=== PATIENT | male | born 1950 | race Caucasian/White ===

== ENCOUNTER → 2017-07-24 | Outpatient (CLI) | payer OTHER ==
--- NOTE | 2017-07-24 11:58 | RAD ---
CHEST PA LATERAL Clinical indications: CHRONIC COUGH, CONGESTION, SHORT OF BREATH COMPARISON: None available Findings: Old granulomatous disease is evident. There is nodular density of the lateral aspect of the left lower lung zone which may represent a nodular scar or granuloma. Recommend a chest CT with IV contrast for further evaluation if there is no previous chest x-ray available for comparison.. No acute lung infiltrate or pleural effusion or pulmonary edema or pneumothorax is seen. Mild cardiomegaly is evident. The pulmonary vasculature, mediastinum and both alexis are unremarkable. The osseous structures appear intact. Impression: Nodular density of the lateral aspect of the left lower lung zone which may represent a nodular scar or granuloma. However, recommend a chest CT with IV contrast for further evaluation if there is no previous chest x-ray available for comparison. Mild cardiomegaly. Electronically signed by: Grant Aaron MD (07/24/2017 11:55 AM) [id number]
== END | disposition home or self-care (01) ==
LOC: DXRAD 08:24
PROVIDERS: ATTEND Family Medicine
DX: I48.91 Unspecified atrial fibrillation (principal); I50.9 Heart failure, unspecified; R91.1 Solitary pulmonary nodule; I51.7 Cardiomegaly
CPT/HCPCS: 71046

== ENCOUNTER → 2019-11-10 | Outpatient (CLI) | payer MEDICARE, MEDICAID | LOC: LAB 08:52 | PROVIDERS: ATTEND Internal Medicine Clinical Cardiac Electrophysiology | DX: Z01.812 Encounter for preprocedural laboratory examination (principal); I47.2 Ventricular tachycardia; Z20.828 Contact with and (suspected) exposure to other viral communicable diseases | CPT/HCPCS: U0003-CS ==

== ENCOUNTER 2020-09-14 12:46 | Emergency (ER) | payer MEDICARE, MEDICAID ==
[~2020-09-14] VITALS: Ht 172.7 cm; Wt 114.2 kg
[2020-09-14] MEDS: IV NORMAL SALINE 1,000ML 1,000 ML IV ONE ×4 (13:05→15:30)
--- NOTE | 2020-09-14 13:05 | PHYS DOC ---
Past History Past Medical History: CVA, Diabetes, DVT Past Surgical History: Other Additional Past Surgical Histo: GI Smoking: Quit Greater Than 1 Year Alcohol Use: None Drug Use: None Adult General Chief Complaint Chief Complaint: MULTIPLE COMPLAINTS HPI HPI Patient is a 70-year-old male presenting via EMS from local primary care clinic. He is a poor historian. States he was seen and evaluated at their facility approximately 1 week ago and states he had blood work performed but cannot remember the results. Reports he went back today for refill of medications, states he is insulin-dependent type 2 diabetic with unknown last hemoglobin A1c, states he has not been taking any of his home medication for diabetes though? Per EMS report, it was reported that patient presented to clinic and appeared diaphoretic, hypotensive, tachycardic and had an irregular heart beat and so EMS was called to transfer him here for evaluation. In route, patient's bpoek-qa-arel glucose read high. Patient does admit to having history of CVA and is currently on Xarelto for blood clot, he is unsure how long he has been on this and or where blood clot was but states he has seen contact worker lithography in the past for it. He is unsure who his contact worker lithography is. At present, patient complains of chest pressure, diaphoresis, abdominal distention and decreased frequency of urination which is new for him. Denies any recent fever, blurred vision, ripping or tearing sensation in chest, changes in motor neuro or sensory function. Review of Systems Review of Systems Fourteen body systems of review of systems have been reviewed. See HPI for pertinent positives and negative responses, other mora all other systems are negative, non-pertinent or non-contributory Current Medications Current Medications Current Medications Medications (Trade) Dose Ordered Sig/Evie Start Time Stop Time Status Last Admin Dose Admin Aspirin (Aspirin Chewable) 162 mg 1X ONCE 09/14/20 13:15 09/14/20 13:16 DC 09/14/20 13:19 162 MG Ceftriaxone Sodium 2 gm/ Sodium Chloride 100 ml @ 200 mls/hr 1X ONCE 09/14/20 15:15 09/14/20 15:44 DC 09/14/20 15:54 200 MLS/HR Ceftriaxone Sodium (Rocephin) 2 gm STK-MED ONCE 09/14/20 15:50 09/14/20 15:51 DC Insulin Human Regular (HumuLIN R VIAL) 10 unit 1X ONCE 09/14/20 14:15 09/14/20 14:39 DC 09/14/20 14:58 10 UNIT Sodium Chloride 100 ml @ As Directed STK-MED ONCE 09/14/20 15:51 09/14/20 15:51 DC Allergies Allergies Allergies Coded Allergies Type Severity Reaction Last Updated Verified No Known Drug Allergies 09/14/20 No Physical Exam Physical Exam Constitutional: Well developed, well nourished, no acute distress, non-toxic appearance. HENT: Normocephalic, atraumatic, bilateral external ears normal, oropharynx moist, no oral exudates, nose normal. Eyes: PERRLA, EOMI, conjunctiva normal, no discharge. Neck: Normal range of motion, no tenderness, supple, no stridor. Cardiovascular: Heart rate regular, sinus rhythm, no murmurs rubs or gallops Lungs & Thorax: Bilateral breath sounds clear to auscultation Abdomen: Bowel sounds normal, soft, no tenderness, no masses, no pulsatile masses. Nonsurgical abdomen, no peritoneal signs Skin: Warm, dry, no erythema, no rash. Back: No tenderness, no CVA tenderness. Extremities: No tenderness, no cyanosis, no clubbing, ROM intact, no edema. Neurologic: Alert and oriented X 3, grossly normal motor & sensory function, no focal deficits noted. Psychologic: Affect normal, judgement normal, mood normal. Current Patient Data Vital Signs Vital Signs Date Time Temp Pulse Resp B/P (MAP) Pulse Ox O2 Delivery O2 Flow Rate FiO2 09/14/20 12:52 98.5 77 20 80/41 97 Room Air Vital Signs Date Time Temp Pulse Resp B/P (MAP) Pulse Ox O2 Delivery O2 Flow Rate FiO2 09/14/20 12:52 98.5 77 20 80/41 97 Room Air Lab Results Laboratory Tests Test 09/14/20 13:00 09/14/20 13:20 09/14/20 14:35 09/14/20 14:49 White Blood Count 18.1 x10^3/uL Red Blood Count 4.11 x10^6/uL Hemoglobin 12.9 g/dL Hematocrit 39.4 % Mean Corpuscular Volume 96 fL Mean Corpuscular Hemoglobin 31 pg Mean Corpuscular Hemoglobin Concent 33 g/dL Red Cell Distribution Width 13.7 % Platelet Count 189 x10^3/uL Neutrophils (%) (Auto) 90 % Lymphocytes (%) (Auto) 2 % Monocytes (%) (Auto) 8 % Eosinophils (%) (Auto) 0 % Basophils (%) (Auto) 0 % Neutrophils # (Auto) 16.2 x10^3uL Lymphocytes # (Auto) 0.4 x10^3/uL Monocytes # (Auto) 1.4 x10^3/uL Eosinophils # (Auto) 0.0 x10^3/uL Basophils # (Auto) 0.0 x10^3/uL Segmented Neutrophils % 63 % Band Neutrophils % 28 % Lymphocytes % 2 % Monocytes % 3 % Eosinophils % 1 % Metamyelocytes % 2 % Myelocytes % 1 % Platelet Estimate Adequate Sodium Level 128 mmol/L Potassium Level 4.8 mmol/L Chloride Level 89 mmol/L Carbon Dioxide Level 21 mmol/L Anion Gap 18 Blood Urea Nitrogen 54 mg/dL Creatinine 3.6 mg/dL Estimated GFR (Cockcroft-Gault) 16.9 BUN/Creatinine Ratio 15 Glucose Level 635 mg/dL Lactic Acid Level 8.1 mmol/L Calcium Level 8.5 mg/dL Total Bilirubin 2.8 mg/dL Aspartate Amino Transf (AST/SGOT) 33 U/L Alanine Aminotransferase (ALT/SGPT) 23 U/L Alkaline Phosphatase 178 U/L Troponin I Quantitative 0.468 ng/mL WI-Eoj-B-Type Natriuretic Peptide 7871 pg/mL Total Protein 7.2 g/dL Albumin 2.9 g/dL Albumin/Globulin Ratio 0.7 Acetone Level Neg Bedside Venous pH 7.34 Bedside Venous pCO2 38 mmHg Bedside Venous pO2 36 mmHg Venous Blood HCO3 20 mmol/L POC Venous O2 Saturation (Regulo) 66 % Bedside FiO2 21 Ethyl Alcohol Level < 10 mg/dL Prothrombin Time 17.5 SEC Prothromb Time International Ratio 1.7 Activated Partial Thromboplast Time 39 SEC Urine Collection Type Unknown Urine Color Yellow Urine Clarity Cloudy Urine pH 6.0 Urine Specific Jewell 1.015 Urine Protein >100 mg/dl Urine Glucose (UA) >=1000 mg/dL Urine Ketones (Stick) Neg mg/dL Urine Blood Large Urine Nitrite Neg Urine Bilirubin Neg Urine Urobilinogen Dipstick 0.2 mg/dL Urine Leukocyte Esterase Small Urine RBC 0 /HPF Urine WBC Tntc /HPF Urine Squamous Epithelial Cells Few /LPF Urine Bacteria Mod /HPF Urine Mucus Slight /LPF Urine Opiates Screen Neg Urine Methadone Screen Neg Urine Barbiturates Neg Urine Phencyclidine Screen Neg Urine Amphetamine/Methamphetamine Neg Urine Benzodiazepines Screen Neg Urine Cocaine Screen Neg Urine Cannabinoids Screen Neg Urine Ethyl Alcohol Neg Test 09/14/20 16:40 09/14/20 18:18 Lactic Acid Level 3.7 mmol/L Glucose (Fingerstick) 389 mg/dL Current Medications Medications (Trade) Dose Ordered Sig/Evie Route PRN Reason Start Time Stop Time Status Last Admin Dose Admin Sodium Chloride 1,000 ml @ 1,000 mls/hr 1X ONCE IV 09/14/20 13:15 09/14/20 14:14 DC 09/14/20 13:05 1,000 MLS/HR Aspirin (Aspirin Chewable) 162 mg 1X ONCE PO 09/14/20 13:15 09/14/20 13:16 DC 09/14/20 13:19 162 MG Sodium Chloride 1,000 ml @ 1,000 mls/hr 1X ONCE IV 09/14/20 13:45 09/14/20 14:44 DC 09/14/20 13:34 1,000 MLS/HR Sodium Chloride 1,000 ml @ 1,000 mls/hr 1X ONCE IV 09/14/20 14:00 09/14/20 14:59 DC 09/14/20 14:00 1,000 MLS/HR Insulin Human Regular (HumuLIN R VIAL) 10 unit 1X ONCE IV 09/14/20 14:15 09/14/20 14:39 DC 09/14/20 14:58 10 UNIT Ceftriaxone Sodium 2 gm/ Sodium Chloride 100 ml @ 200 mls/hr 1X ONCE IV 09/14/20 15:15 09/14/20 15:44 DC 09/14/20 15:54 200 MLS/HR Sodium Chloride 1,000 ml @ 1,000 mls/hr 1X ONCE IV 09/14/20 15:30 09/14/20 16:29 DC 09/14/20 15:30 1,000 MLS/HR Ceftriaxone Sodium (Rocephin) 2 gm STK-MED ONCE IV 09/14/20 15:50 09/14/20 15:51 DC Sodium Chloride 100 ml @ As Directed STK-MED ONCE .ROUTE 09/14/20 15:51 09/14/20 15:51 DC EKG EKG EKG ordered and interpreted by myself at 1300 hrs. shows sinus rhythm at 78 bpm, QTC 501, no axis deviation, T wave inversion noted in lead V2 through V6, there is concern for ST wave inversion in leads V2 through V5, no STEMI EKG ordered and interpreted by myself at 1332 hrs. sinus rhythm at 75 bpm, prolonged QTC at 510 otherwise unremarkable intervals, no axis deviation, persistent T wave inversions noted in lead V2 through V6, there is persistent ST wave depression in leads V2, V3, V4, V5, no STEMI Radiology/Procedures Radiology/Procedures EXAM: Chest, single view; abdomen, single view. HISTORY: Fatigue. Hypertension. COMPARISON: 07/24/2017 FINDINGS: CHEST: A frontal view of the chest is obtained. There is no infiltrate, pleural effusion or pneumothorax. There is a stable prominent cardiac silhouette. There are chronic appearing interstitial changes. ABDOMEN: Frontal views of the abdomen are obtained. There is gas and stool within the colon and rectum. There are nonspecific air-filled dose of bowel within the midabdomen. No convincing transition point is seen to suggest obstruction. IMPRESSION: 1. No acute pulmonary finding. 2. Prominent air-filled bowel within the abdomen. No convincing transition point is seen to suggest obstruction. Electronically signed by: Kirstie Huddleston MD (09/14/2020 1:31 PM) [id number] ///////////////////////// CT abdomen and pelvis without contrast. HISTORY: Abdominal pain and distention CT abdomen pelvis was done without contrast. There is mild atelectasis or scarring in the lingula. Lung bases are otherwise clear. There is hypertrophic change in the spine. There is no acute lumbar fracture. A liver lesion is not identified. Spleen is unremarkable. Adrenal glands are normal. There is a cyst at the upper pole of the left kidney no further follow-up is warranted. There is a 2 mm calculus in the mid left kidney there is a focal complicated or hemorrhagic cyst in the anterior lower left kidney follow-up with ultrasound could be of benefit. There is no mass or hydronephrosis or calculus in the right kidney. There is atherosclerotic change in the aorta without an aneurysm. There is not evidence of a diverticulitis. There is not evidence of appendicitis. There is slight indistinctness or edema in the retroperitoneum adjacent to the ureters. There is no ureteral calculus or hydronephrosis. There is no hydronephrosis or hydroureter. Mild retroperitoneal fibrosis is possible. There is trabeculation of the bladder. Prostate is generous in size. There is no old study for comparison. IMPRESSION: 1. Left intrarenal calculus. 2. Hemorrhagic or complicated cyst lower left kidney follow-up or ultrasound could be of benefit. 3. Indistinctness in the retroperitoneal fat etiology undetermined. 4. No renal or ureteral calculus or hydronephrosis noted. 5. Thickening of the bladder wall with trabeculation. PQRS Compliance Statement: One or more of the following individualized dose reduction techniques were utilized for this examination: 1. Automated exposure control 2. Adjustment of the mA and/or kV according to patient size 3. Use of iterative reconstruction technique Electronically signed by: Bhavesh Culp MD (09/14/2020 3:27 PM) [facility] Heart Score C/O Chest Pain: Yes HEART Score for Chest Pain: HEART Score for Chest Pain Response (Comments) Value History Moderately Suspicious [address] Depression 2 Age > 65 2 Risk Factors >3 Risk Factors or Hx CAD 2 Troponin >3 x Normal Limit 2 Total 9 Risk Factors: Risk Factors: DM, Current or recent (<one month) smoker, HTN, HLP, family history of CAD, obesity. Risk Scores: Risk Factors: DM, Current or recent (<one month) smoker, HTN, HLP, family history of CAD, obesity. Course & Med Decision Making Course & Med Decision Making Airway patent, breathing unlabored, IV access and vitals obtained concerning for hypotension HPI limited due to fact that patient is extremely poor historian. Physical examination grossly unremarkable for emergent or surgical issues. [id number] glucose read is high and diagnostic work-up ensued Immediate aggressive IV fluid rehydration started with improvement in patient's blood pressure. There was concern for decreased urinary frequency and suprapubic pain so decision was made to administer 2 g IV Rocephin for UTI as likely source of sepsis Patient initially reported chest pain while at primary care clinic approximately 1 hour prior to arrival, no reoccurrence of this, no medication was given, EKGs nonconcerning for STEMI but there is an elevated troponin. Unsure cardiac etiology NSTEMI versus type II NSTEMI Patient's glucose and lactic acid on recheck thoroughly improved with IV fluid rehydration and IV insulin. Nonetheless, patient still not fit for departure home I contacted cardiology services at [facility] and reviewed case, they agreed need for continued medical management of underlying problem which is sepsis and will continue to monitor patient's EKGs and serial troponins with no need for cardiac catheterization activation I contacted hospitalist service at [facility] and discussed need for hospital transfer, they accepted patient under their care into ICU setting I updated patient on proposed plan of care that included hospital transfer and he was amenable. All questions and concerns addressed prior to ER transfer in improved but still guarded Critical Care Time This patient required critical care. Due to the fact that the patient required a significant amount of one on one physician - patient contact time, ordering and review of studies, arranging urgent treatment with development of a management plan, evaluation of patients response to treatment with frequent reassessments, and discussions with other providers this patient required 45 minutes of critical care time. Critical care time was indicated due to the inherent instability and/or potential for instability in this patient. The critical care time that is allocated to this patient is above and beyond any time spent on any other billable procedures performed on this patient. Dragon Disclaimer Dragon Disclaimer This electronic medical record was generated, in whole or in part, using a voice recognition dictation system. Departure Departure: Impression: Primary Impression: Sepsis secondary to UTI Additional Impressions: Prolonged QT interval Elevated troponin Uncontrolled type 2 diabetes mellitus with hyperglycemia Disposition: 02 [facility] Admitting Physician: Other (DR YANES) Condition: GUARDED Referrals: TOSHIA SHARMA (PCP) Problem Qualifiers YAYA PADILLA DO Sep 14, 2020 13:05
[2020-09-14 13:15] LABS: BASO % 0 % (0-3); EOS % 0 % (0-3); HEMATOCRIT 39.4 % (39.0-53.0); HEMOGLOBIN 12.9 g/dL (13.0-17.5); LYMPH # 0.4 x10^3/uL (1.0-4.8); LYMPH % 2 % (24-48); MEAN CORPUSCULAR HEMOGLOBIN 31 pg (25-35); MEAN CORPUSCULAR HGB CONC 33 g/dL (31-37); MEAN CORPUSCULAR VOLUME 96 fL (79-100); MONO # 1.4 x10^3/uL (0.0-1.1); MONO % 8 % (0-9); NEUT # 16.2 x10^3uL (1.8-7.7); NEUT % 90 % (31-73); PLATELET COUNT 189 x10^3/uL (140-400); RED BLOOD COUNT 4.11 x10^6/uL (4.30-5.70); RED CELL DISTRIBUTION WIDTH 13.7 % (11.5-14.5); WHITE BLOOD COUNT 18.1 x10^3/uL (4.0-11.0)
[2020-09-14] MEDS: ASPIRIN CHEWABLE 81 MG TABLET. PO ONE (13:19)
--- NOTE | 2020-09-14 13:33 | RAD ---
EXAM: Chest, single view; abdomen, single view. HISTORY: Fatigue. Hypertension. COMPARISON: 07/24/2017 FINDINGS: CHEST: A frontal view of the chest is obtained. There is no infiltrate, pleural effusion or pneumotho rax. There is a stable prominent cardiac silhouette. There are chronic appearing interstitial changes . ABDOMEN: Frontal views of the abdomen are obtained. There is gas and stool within the colon and rectu m. There are nonspecific air-filled dose of bowel within the midabdomen. No convincing transition poi nt is seen to suggest obstruction. IMPRESSION: 1. No acute pulmonary finding. 2. Prominent air-filled bowel within the abdomen. No convincing transition point is seen to suggest o bstruction. Electronically signed by: Kirstie Huddleston MD (09/14/2020 1:31 PM) [id number]
[2020-09-14 13:44] LABS: ALBUMIN 2.9 g/dL (3.4-5.0); ALBUMIN/GLOBULIN RATIO 0.7 (1.0-1.7); CALCIUM 8.5 mg/dL (8.5-10.1); CREATININE 3.6 mg/dL (0.7-1.3); GFR 16.9; POTASSIUM 4.8 mmol/L (3.5-5.1); TOTAL BILIRUBIN 2.8 mg/dL (0.2-1.0); TOTAL PROTEIN 7.2 g/dL (6.4-8.2)
[2020-09-14 14:04] LABS: % BANDS 28 % (0-9); % EOS 1 % (0-5); % LYMPHS 2 % (24-48); % METAS 2 % (0-0); % MONOS 3 % (0-10); % MYELOS 1 % (0-0); % SEGS 63 % (35-66); PLT ESTIMATE ADEQUATE (ADEQUATE)
--- NOTE | 2020-09-14 14:15 | EKG ---
[address] [address] Test Date: 2020-09-14 Test Time: 12:51:56 Pat Name: GREGORY ANDREWS Department: Room: Gender: M Warehouse Trainer: RADHA : 1950 Requested By: YAYA PADILLA Order Number: [id number] Reading MD: Measurements Intervals Trevor Rate: 78 P: 90 FL: 160 QRS: 64 QRSD: 100 T: 65 QT: 436 QTc: 501 Interpretive Statements SINUS RHYTHM INCOMPLETE RIGHT BUNDLE BRANCH BLOCK RVH WITH REPOLARIZATION ABNORMALITY PROLONGED QT ABNORMAL ECG RI6.02 No previous ECG available for comparison
--- NOTE | 2020-09-14 14:16 | EKG ---
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
[2020-09-14] MEDS: INSULIN REGULAR 100 UNIT/ML 3ML VIAL. IV ONE (14:58)
[2020-09-14 15:13] LABS: BARBITURATES NEG (NEG); BENZODIAZEPINES NEG (NEG); CANNABINOIDS NEG (NEG); COCAINE NEG (NEG); METHADONE NEG (NEG); OPIATES NEG (NEG); PHENCYCLIDINE NEG (NEG)
[2020-09-14 15:20] LABS: AMPHETAMINE/METHAMPHETAMINE NEG (NEG)
--- NOTE | 2020-09-14 15:29 | RAD ---
CT abdomen and pelvis without contrast. HISTORY: Abdominal pain and distention CT abdomen pelvis was done without contrast. There is mild atelectasis or scarring in the lingula. Jeannine ng bases are otherwise clear. There is hypertrophic change in the spine. There is no acute lumbar fra cture. A liver lesion is not identified. Spleen is unremarkable. Adrenal glands are normal. There is a cyst at the upper pole of the left kidney no further follow-up is warranted. There is a 2 mm calcul us in the mid left kidney there is a focal complicated or hemorrhagic cyst in the anterior lower left kidney follow-up with ultrasound could be of benefit. There is no mass or hydronephrosis or calculus in the right kidney. There is atherosclerotic change in the aorta without an aneurysm. There is not evidence of a diverticulitis. There is not evidence of appendicitis. There is slight indistinctness o r edema in the retroperitoneum adjacent to the ureters. There is no ureteral calculus or hydronephros is. There is no hydronephrosis or hydroureter. Mild retroperitoneal fibrosis is possible. There is tr abeculation of the bladder. Prostate is generous in size. There is no old study for comparison. IMPRESSION: 1. Left intrarenal calculus. 2. Hemorrhagic or complicated cyst lower left kidney follow-up or ultrasound could be of benefit. 3. Indistinctness in the retroperitoneal fat etiology undetermined. 4. No renal or ureteral calculus or hydronephrosis noted. 5. Thickening of the bladder wall with trabeculation. PQRS Compliance Statement: One or more of the following individualized dose reduction techniques were utilized for this examinat ion: 1. Automated exposure control 2. Adjustment of the mA and/or kV according to patient size 3. Use of iterative reconstruction technique Electronically signed by: Bhavesh Culp MD (09/14/2020 3:27 PM) [facility]
[2020-09-14 15:37] LABS: BACTERIA,URINE MOD /HPF (0-FEW); BILIRUBIN,URINE NEG (NEG); CLARITY,URINE CLOUDY; COLOR,URINE YELLOW; GLUCOSE,URINE >=1000 mg/dL (NEG); NITRITE,URINE NEG (NEG); RBC,URINE 0 /HPF (0-2); UROBILINOGEN,URINE 0.2 mg/dL (0.2 mg/dL); WBC,URINE TNTC /HPF (0-4)
[2020-09-14 15:38] LABS: SQUAMOUS EPITHELIAL CELL,UR FEW /LPF
[2020-09-14] MEDS ORDERED: IV NORMAL SALINE 100ML 100 ML ONE (15:51)
[2020-09-14 18:16] VITALS: BP 110/57
== END 2020-09-14 19:41 | disposition short-term general hospital (02) ==
LOC: ER 12:46
DX: A41.9 Sepsis, unspecified organism (principal); R94.31 Abnormal electrocardiogram [ECG] [EKG]; R77.8 Other specified abnormalities of plasma proteins; E11.65 Type 2 diabetes mellitus with hyperglycemia; I10 Essential (primary) hypertension; Z86.73 Personal history of transient ischemic attack (TIA), and cerebral infarction without residual deficits; Z87.891 Personal history of nicotine dependence
CPT/HCPCS: 36415; 71045; 74018; 74176; 80053; 80307; 81001; 82010; 82803; 82947; 83605; 83880; 84484; 85007; 85025; 85610; 85730; 87040; 87086; 87205; 93005; 96361; 96365; 96366; 96375; 99291; G0480; J0696; J1815; J7030

== ENCOUNTER 2021-07-30 22:21 | Emergency (ER) | payer MEDICARE, MEDICAID ==
[~2021-07-30] VITALS: Ht 167.6 cm; Wt 107.7 kg
--- NOTE | 2021-07-30 22:36 | PHYS DOC ---
Past History Past Medical History: CVA, Diabetes, DVT Past Surgical History: Other Additional Past Surgical Histo: GI Smoking: Quit Greater Than 1 Year Alcohol Use: None Drug Use: None General Adult HPI: HPI: Patient is a 70-year-old male coming in from home. Patient was found unresponsive. On EMS arrival his glucose was 24. He was given D10 in route by EMS with improvement mental status to GCS 15 and pressure in the 220s. Patient states that he takes a short and long-acting insulin. Take never had not eaten anything yet. Denies any history of hypoglycemic events. States he otherwise has been well and saw his primary care provider today. Review of Systems: Review of Systems: All other systems within normal limits except for as noted in the HPI Allergies: Allergies: Allergies Coded Allergies Type Severity Reaction Last Updated Verified No Known Drug Allergies 09/14/20 No Physical Exam: PE: Constitutional: Well developed, well nourished, no acute distress, non-toxic appearance. [] HENT: Normocephalic, atraumatic, bilateral external ears normal, nose normal. [] Eyes: PERRLA, conjunctiva normal, no discharge. [] Neck: No rigidity, supple, no stridor. [] Cardiovascular: Regular rate and rhythm, brisk cap refill [] Lungs & Thorax: Non labored symmetric respirations, no tachypnea or respiratory distress [] Abdomen: Soft, nondistended. Skin: Warm, dry, no erythema, no rash. [] Back: Unremarkable Extremities: No deformities, range of motion grossly intact, no lower extremity edema [] Neurologic: Alert and oriented X 3, no focal deficits noted. [] Psychologic: Affect normal, judgement normal, mood normal. [] EKG: EKG: Sinus rhythm, heart rate 92, no STEMI [] Radiology/Procedures: Radiology/Procedures: [] Heart Score: C/O Chest Pain: No Risk Factors: Risk Factors: DM, Current or recent (<one month) smoker, HTN, HLP, family history of CAD, obesity. Risk Scores: Score 0 - 3: 2.5% MACE over next 6 weeks - Discharge Home Score 4 - 6: 20.3% MACE over next 6 weeks - Admit for Clinical Observation Score 7 - 10: 72.7% MACE over next 6 weeks - Early Invasive Strategies Course & Med Decision Making: Course & Med Decision Making Discussed admission with patient due to slightly elevated troponin and low potassium. Patient states he is unwilling to stay in the hospital. Discussed observation due to low blood sugars with every 30 minute glucose checks. Offered to do a repeat troponin during that time and start on potassium, patient agreeable to plan. He states that when he saw his primary care provider this morning he was told that he had low potassium in the 2 range, but could not remember the exact number. Patient states his primary care provider had already called him out a prescription for potassium and today that he needs to pick pulling machine tender from the pharmacy. Repeat troponin similar to previous, expect to be elevated patient with known renal insufficiency. Patient denies any chest pain during his entire stay in the emergency department. Patient still requesting to go home and does not want to be admitted. Neal Disclaimer: Neal Disclaimer: This electronic medical record was generated, in whole or in part, using a voice recognition dictation system. Departure Departure: Impression: Primary Impression: Hypokalemia Additional Impression: Hypoglycemia Disposition: 01 HOME / SELF CARE / HOMELESS Condition: STABLE Referrals: TOSHIA SHARMA (PCP) Patient Instructions: Hypokalemia STEFANY POLLOCK MD July 30, 2021 22:36
[2021-07-30 23:10] LABS: BASO % 1 % (0-3); EOS # 0.2 x10^3/uL (0.0-0.7); EOS % 4 % (0-3); HEMATOCRIT 40.4 % (39.0-53.0); HEMOGLOBIN 13.7 g/dL (13.0-17.5); LYMPH # 1.9 x10^3/uL (1.0-4.8); LYMPH % 32 % (24-48); MEAN CORPUSCULAR HEMOGLOBIN 31 pg (25-35); MEAN CORPUSCULAR HGB CONC 34 g/dL (31-37); MEAN CORPUSCULAR VOLUME 92 fL (79-100); MONO # 0.8 x10^3/uL (0.0-1.1); MONO % 14 % (0-9); NEUT # 2.9 x10^3uL (1.8-7.7); NEUT % 50 % (31-73); PLATELET COUNT 183 x10^3/uL (140-400); RED BLOOD COUNT 4.39 x10^6/uL (4.30-5.70); RED CELL DISTRIBUTION WIDTH 14.7 % (11.5-14.5); WHITE BLOOD COUNT 5.9 x10^3/uL (4.0-11.0)
[2021-07-30 23:23] LABS: ALBUMIN 3.5 g/dL (3.4-5.0); ALBUMIN/GLOBULIN RATIO 1.1 (1.0-1.7); CALCIUM 8.2 mg/dL (8.5-10.1); CREATININE 1.7 mg/dL (0.7-1.3); GFR 40.3; TOTAL BILIRUBIN 2.7 mg/dL (0.2-1.0); TOTAL PROTEIN 6.6 g/dL (6.4-8.2)
[2021-07-30 23:27] LABS: POTASSIUM 2.6 mmol/L (3.5-5.1)
[2021-07-30 23:39] LABS: BACTERIA,URINE 0 /HPF (0-FEW); CLARITY,URINE CLEAR; COLOR,URINE YELLOW; GLUCOSE,URINE NEG (NEG); NITRITE,URINE NEG (NEG); SQUAMOUS EPITHELIAL CELL,UR OCC /LPF; WBC,URINE RARE /HPF (0-4)
[2021-07-30 23:45] LABS: MAGNESIUM 2.3 mg/dL (1.8-2.4); PHOSPHORUS 3.4 mg/dL (2.6-4.7)
[2021-07-30] MEDS ORDERED: POTASSIUM BICARB 20 MEQ EFFERVESCENT TABLET. ONE ×2 (23:56)
[2021-07-31] MEDS ORDERED: POTASSIUM CHLORIDE 20 MEQ TABLET.ER. PO ONE
[2021-07-31] MEDS ORDERED: POTASSIUM BICARB 20 MEQ EFFERVESCENT TABLET. PO ONE (00:15)
[2021-07-31 01:50] VITALS: BP 106/64
== END 2021-07-31 01:55 | disposition home or self-care (01) ==
LOC: ER 22:21
DX: E87.6 Hypokalemia (principal); E11.649 Type 2 diabetes mellitus with hypoglycemia without coma; Z86.718 Personal history of other venous thrombosis and embolism; Z86.73 Personal history of transient ischemic attack (TIA), and cerebral infarction without residual deficits
CPT/HCPCS: 36415; 80053; 81001; 82947; 83735; 84100; 84484; 85025; 93005; 99285

== ENCOUNTER → 2021-08-13 | Outpatient (CLI) | payer MEDICARE, MEDICAID ==
[2021-07-31 01:50] VITALS: BP 106/64
--- NOTE | 2021-08-13 11:02 | RAD ---
Exam: Right Upper Quadrant Ultrasound 08/13/2021 9:39 AM Indication: Elevated bilirubin, and AST Technique: Multiple realtime grayscale sonographic images were obtained over the abdomen. Static imag es were submitted for interpretation. Comparisons: CT of the abdomen and pelvis September 14, 2020 Findings: The pancreas is nonvisualized secondary overlying gas filled bowel. Visualized IVC is unrem arkable. Liver demonstrates mild increase in echogenicity. A component of hepatic steatosis is not ex cluded. No intrahepatic biliary dilatation is seen. No focal hepatic lesion is seen. The liver is nor mal in size measuring 15 cm longitudinally. The portal vein demonstrates flow in the normal direction . Common bile duct is nondilated measuring 3 mm. The gallbladder demonstrates no evidence of stones. No wall thickening is seen. Some tenderness noted with scanning of the right upper quadrant. The right kidney measures 10 cm longitudinally. There is a 1.4 cm probable cyst seen in the mid right kidney. The right kidney is otherwise unremarkable. IMPRESSION: 1. Possible mild hepatic steatosis 2. Probable 1.4 cm right renal cyst 3. Mild nonspecific tenderness with ultrasound evaluation of the right upper abdomen. No sonographic evidence of cholecystitis is identified. Electronically signed by: Reuben Garay MD (08/13/2021 11:00 AM) [id number]
== END ==
LOC: US 09:29
PROVIDERS: ATTEND Family Medicine
DX: R74.01 Elevation of levels of liver transaminase levels (principal); R10.811 Right upper quadrant abdominal tenderness; R17 Unspecified jaundice
CPT/HCPCS: 76705